=== PATIENT | male | born 1965 | race Caucasian/White ===

== ENCOUNTER → 2020-05-25 11:01 | Outpatient (BNVA) | payer SELFPAY | PROVIDERS: Referring Provider Nurse Practitioner Family; Visit Provider Orthopaedic Surgery | DX: M79.645 Pain in left finger(s) (principal); S66.812A Strain of other specified muscles, fascia and tendons at wrist and hand level, left hand, initial encounter; X58.XXXA Exposure to other specified factors, initial encounter | CPT/HCPCS: 73140 ==